=== PATIENT | male | born 1970 | race Caucasian/White ===

== ENCOUNTER → 2023-11-15 | Outpatient (REF) | payer OTHER | LOC: M LABSMT 11:56 | PROVIDERS: ATTEND Urology | DX: R79.89 Other specified abnormal findings of blood chemistry (principal); Z53.9 Procedure and treatment not carried out, unspecified reason ==

== ENCOUNTER → 2023-12-08 | Outpatient (REF) | payer OTHER | LOC: CANPREREF → M LABSMT 14:07 | PROVIDERS: ATTEND Urology | DX: E29.1 Testicular hypofunction (principal) ==